=== PATIENT | male | born 1995 | race Hispanic/Latino ===

== ENCOUNTER 2022-04-24 09:37 | Emergency (ER) | payer MEDICAID ==
--- NOTE | 2022-04-24 10:27 | Event Note ---
ED Screening Note ED Screening Note: ATE EDIBLE HI PSYCHOSIS THREATENING BEHAVIOR IN TRIAGE LIMITED INFO This initial assessment/diagnostic orders/clinical plan/treatment(s) is/are subject to change based on patients health status, clinical progression and re- assessment by fellow clinical providers in the ED. Further treatment and workup at subsequent clinical providers discretion. Patient/guardian urged not to elope from the ED as their condition may be serious if not clinically assessed and managed. Initial orders include: 1013
[2022-04-24] MEDS ORDERED: HALOPERIDOL LACTATE 5 MG/1 ML INJ IM PRN (12:09)
[2022-04-24] MEDS ORDERED: LORazepam 2 MG/ML VIAL IM PRN (12:09)
--- NOTE | 2022-04-24 13:21 | Consultation ---
History of Present Illness - Reason for Consult Consult date: 04/24/22 Reason for consult: psychosis - History of Present Psychiatric Illness The patient was seen today. His thoughts are disorganized. He is responding to internal stimuli. He could not tell my why he came to the hospital. He initially says "I don't know." The nurse says the patient tried to choke himself and was placed in seclusion. The patient says he's hearing voices of the devil. He says they are telling him to hurt people and hurt himself. He says he is suicidal, but denies feeling homicidal. He says he has a history of schizophrenia and bipolar. The patient says he takes seroquel 600mg and propranolol 40mg. He denies any illicit drug use, alcohol or nicotine. PAST PSYCHIATRIC HISTORY: Diagnoses: Schizophrenia, bipolar Suicide attempts or Self-harm behavior: Denies Prior psychiatric hospitalizations: Yes Substance Abuse history: Denies Previous psychiatric medications tried: Denies Outpatient treatment: Denies PAST MEDICAL HISTORY: None reported Family Psychiatric History: None reported or documented SOCIAL HISTORY Marital Status: Single Living Arrangements: with family Employment Status: unemployed Access to guns/weapons: Denies Education: History of Abuse:Denies Legal History: Denies REVIEW OF SYSTEMS Constitutional: Negative for weight loss ENT: Negative for stridor Respiratory: Negative for cough or hemoptysis All other systems reviewed and are negative MENTAL STATUS EXAMINATION General Appearance and Behavior: Age appropriate, wearing appropriate clothes, cooperative, anxious, cooperative Cooperation: cooperative Psychomotor Behavior: Psychomotor normal Mood: depressed Affect and affective range: congruent with stated affect Thought Process: disorganized, responding to internal stimuli Thought Content: Hallucinations Speech: Normal volume, Regular rate and rhythm Suicidal Ideation: Yes Homicidal Ideation: Denies Hallucination: auditory Delusions: Denies Impulse Control: Poor Insight and Judgment: Poor Memory: Limited Attention: distracted Orientation: Alert and oriented Assessment Schizophrenia Treatment Plan 1013 Seroquel 300mg po BID Doxepin 25mg po qhs Medical: per primary Sitter: Defer to primary Disposition: Recommend acute psychiatric inpatient treatment Will follow. Thanks. Case staffed with Dr. Martin Medications and Allergies Allergies Allergy/AdvReac Type Severity Reaction Status Date / Time No Known Allergies Allergy Verified 04/24/22 09:45 Home Medications Medication Instructions Recorded Confirmed Last Taken Type Quetiapine Fumarate [SEROquel Xr] 600 mg PO BID 04/24/22 04/24/22 Unknown History Active Meds: Active Medications Haloperidol Lactate (Haloperidol Lactate 5 Mg/1 Ml Inj) 5 mg IM Q6HR PRN PRN Reason: Agitation Lorazepam (Lorazepam 2 Mg/Ml Vial) 2 mg IM Q4HR PRN PRN Reason: Agitation Mental Status Exam - Vital signs Last Vital Signs Temp 98 F 04/24/22 09:41 Pulse 99 H 04/24/22 09:41 Resp 20 04/24/22 09:41 BP 130/98 04/24/22 09:41 Pulse Ox 98 04/24/22 11:55 Results All other labs normal.
[2022-04-24] MEDS: QUEtiapine 100 MG TAB PO SCH (14:32)
--- NOTE | 2022-04-24 14:47 | Emergency Department Report ---
ED General Adult HPI - General Chief complaint: Psych Stated complaint: ANXIETY/THC CONSUPTION Time Seen by Provider: 04/24/22 10:24 Source: patient, EMS ( EMS documentation not available at time of chart dictation ), RN notes reviewed Mode of arrival: Ambulatory Limitations: Other (Patient is psychotic and disorganized) - History of Present Illness Initial comments: The patient was evaluated in the emergency department for symptoms described in the history of present illness. He/she was evaluated in the context of the global COVID-19 pandemic, which necessitated consideration that the patient might be at risk for infection with the virus that causes COVID-19. Institutional protocols and algorithms that pertain to the evaluation of patients at risk for COVID-19 are in a state of rapid change based on information released by regulatory bodies including the CDC and federal and state organizations. These policies and algorithms were followed during the patient's care in the emergency department. Please note that these policies, procedures and recommendations changed on a rapid basis. This is a 26-year-old gentleman. He presents to the department with a complaint of feeling psychotic after he took some marijuana. He denies additional coingestions. He is experiencing hallucinations. He denies head trauma. He denies cough and urinary symptoms. It is unknown what time he consumed the marijuana. It is unknown why he consumed the marijuana. His prehospital blood glucose is 117. 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 Patient reportedly tried to choke himself with a shirt prior to my personal evaluation -: unknown - Related Data Home Medications Medication Instructions Recorded Confirmed Last Taken Quetiapine Fumarate [SEROquel Xr] 600 mg PO BID 04/24/22 04/24/22 Unknown Allergies Allergy/AdvReac Type Severity Reaction Status Date / Time No Known Allergies Allergy Verified 04/24/22 09:45 ED Review of Systems ROS: Stated complaint: ANXIETY/THC CONSUPTION Other details as noted in HPI Constitutional: denies: fever Eyes: denies: eye discharge ENT: denies: epistaxis Cardiovascular: denies: chest pain Gastrointestinal: denies: abdominal pain Psychiatric: anxiety. denies: homicidal thoughts ED Past Medical Hx - Past Medical History Hx Psychiatric Treatment: Yes ([facility]) - Social History Smoking Status: Unknown if ever smoked - Medications Home Medications: Home Medications Medication Instructions Recorded Confirmed Last Taken Type Quetiapine Fumarate [SEROquel Xr] 600 mg PO BID 04/24/22 04/24/22 Unknown History ED Physical Exam - General Limitations: Other (Patient is disorganized and psychotic) General appearance: anxious - Head Head exam: Present: atraumatic, normocephalic - Eye Eye exam: Present: normal appearance, EOMI. Absent: nystagmus - ENT ENT exam: Present: normal exam, normal orophraynx, mucous membranes moist, normal external ear exam - Neck Neck exam: Present: normal inspection, full ROM. Absent: tenderness, meningismus - Respiratory Respiratory exam: Present: normal lung sounds bilaterally. Absent: respiratory distress, wheezes, rales, rhonchi, stridor, decreased breath sounds - Cardiovascular Cardiovascular Exam: Present: regular rate, normal rhythm, normal heart sounds. Absent: bradycardia, tachycardia, irregular rhythm, systolic murmur, diastolic murmur, rubs, gallop - GI/Abdominal GI/Abdominal exam: Present: soft. Absent: distended, tenderness, guarding, rebound, rigid, pulsatile mass - Rectal Rectal exam: Present: deferred - Extremities Exam Extremities exam: Present: full ROM, other (2+ pulses noted in the bilateral upper and lower extremities. There is no palpable cord. negative Homans sign. Muscular compartments are soft. The pelvis is stable.). Absent: normal inspection (There is a left lateral inferior knee abrasion), pedal edema, calf tenderness - Back Exam Back exam: Present: normal inspection. Absent: tenderness, CVA tenderness (R), CVA tenderness (L), paraspinal tenderness, vertebral tenderness - Neurological Exam Neurological exam: Present: alert, oriented X3, other (There is no facial droop. The tongue is midline. EOMI. 5 out of 5 strength in 4 extremities). Absent: motor sensory deficit - Psychiatric Psychiatric exam: Present: agitated, anxious - Skin Skin exam: Present: warm, normal color, abrasion ED Course Vital Signs 04/24/22 04/24/22 09:41 11:55 Temperature 98 F Pulse Rate 99 H Respiratory 20 Rate Blood Pressure 130/98 [Left] O2 Sat by Pulse 98 98 Oximetry - Reevaluation(s) Reevaluation #1: 04/24/22 14:46 Differential diagnosis, include but not limited to: Psychosis, marijuana intoxication, medical clearance for psychiatric placement Assessment and plan: 26-year-old gentleman presenting with acute psychosis and m arijuana ingestion. Place patient on 1013. Obtain psychiatric consultation. Obtain appropriate laboratory studies. Multiple phone calls have been made to the lab to request appropriate laboratory studies. I am currently waiting laboratory results at this time. Psychiatric consultation is pending. Nursing team reports that patient is cooperative at this time 04/24/22 16:16 Laboratory studies are essentially unremarkable. Awaiting urinalysis, drug screen and COVID swab. At this point in time, the patient does not appear to have an immediate medical contraindication to psychiatric admission, evaluation, consultation and placement. Emergency room will follow along as the patient provides UA, drug screen and COVID swab. These tests are not necessary to exclude emergent medical conditions ED Medical Decision Making - Lab Data Result diagrams: 04/24/22 14:54 04/24/22 14:54 Vital Signs 04/24/22 04/24/22 09:41 11:55 Temperature 98 F Pulse Rate 99 H Respiratory 20 Rate Blood Pressure 130/98 [Left] O2 Sat by Pulse 98 98 Oximetry Lab Results 04/24/22 04/24/22 04/24/22 Range/Units 14:54 14:54 14:54 WBC 7.8 (4.5-11.0) K/mm3 RBC 4.90 (3.65-5.03) M/mm3 Hgb 15.2 (11.8-15.2) gm/dl Hct 45.4 (35.5-45.6) % MCV 93 (84-94) fl MCH 31 (28-32) pg MCHC 34 (32-34) % RDW 13.4 (13.2-15.2) % Plt Count 228 (140-440) K/mm3 Lymph % (Auto) 18.2 (13.4-35.0) % [place] % (Auto) 8.5 H (0.0-7.3) % Eos % (Auto) 0.8 (0.0-4.3) % Baso % (Auto) 0.1 (0.0-1.8) % Lymph # (Auto) 1.4 (1.2-5.4) K/mm3 [place] # (Auto) 0.7 (0.0-0.8) K/mm3 Eos # (Auto) 0.1 (0.0-0.4) K/mm3 Baso # (Auto) 0.0 (0.0-0.1) K/mm3 Seg Neutrophils % 72.4 H (40.0-70.0) % Seg Neutrophils # 5.6 (1.8-7.7) K/mm3 Sodium 136 L (137-145) mmol/L Potassium 4.3 (3.6-5.0) mmol/L Chloride 96.6 L (98-107) mmol/L Carbon Dioxide 28 (22-30) mmol/L Anion Gap 16 mmol/L BUN 22 H (9-20) mg/dL Creatinine 0.9 (0.8-1.3) mg/dL Estimated GFR > 60 ml/min BUN/Creatinine Ratio 24 % Glucose 100 (75-100) mg/dL Calcium 9.9 (8.4-10.2) mg/dL Total Bilirubin 1.00 (0.1-1.2) mg/dL AST 34 (5-40) units/L ALT 34 (7-56) units/L Alkaline Phosphatase 95 (35-129) units/L Total Protein 7.9 (6.3-8.2) g/dL Albumin 5.2 H (3.9-5) g/dL Albumin/Globulin Ratio 1.9 % Salicylates < 0.3 L (2.8-20.0) mg/dL Acetaminophen (10.0-30.0) ug/mL Plasma/Serum Alcohol (0-0.07) % 04/24/22 04/24/22 Range/Units 14:54 14:54 WBC (4.5-11.0) K/mm3 RBC (3.65-5.03) M/mm3 Hgb (11.8-15.2) gm/dl Hct (35.5-45.6) % MCV (84-94) fl MCH (28-32) pg MCHC (32-34) % RDW (13.2-15.2) % Plt Count (140-440) K/mm3 Lymph % (Auto) (13.4-35.0) % [place] % (Auto) (0.0-7.3) % Eos % (Auto) (0.0-4.3) % Baso % (Auto) (0.0-1.8) % Lymph # (Auto) (1.2-5.4) K/mm3 [place] # (Auto) (0.0-0.8) K/mm3 Eos # (Auto) (0.0-0.4) K/mm3 Baso # (Auto) (0.0-0.1) K/mm3 Seg Neutrophils % (40.0-70.0) % Seg Neutrophils # (1.8-7.7) K/mm3 Sodium (137-145) mmol/L Potassium (3.6-5.0) mmol/L Chloride (98-107) mmol/L Carbon Dioxide (22-30) mmol/L Anion Gap mmol/L BUN (9-20) mg/dL Creatinine (0.8-1.3) mg/dL Estimated GFR ml/min BUN/Creatinine Ratio % Glucose (75-100) mg/dL Calcium (8.4-10.2) mg/dL Total Bilirubin (0.1-1.2) mg/dL AST (5-40) units/L ALT (7-56) units/L Alkaline Phosphatase (35-129) units/L Total Protein (6.3-8.2) g/dL Albumin (3.9-5) g/dL Albumin/Globulin Ratio % Salicylates (2.8-20.0) mg/dL Acetaminophen 5.0 L (10.0-30.0) ug/mL Plasma/Serum Alcohol < 0.01 (0-0.07) % Critical care attestation.: If time is entered above; I have spent that time in minutes in the direct care of this critically ill patient, excluding procedure time. ED Disposition Clinical Impression: Medical clearance for psychiatric admission, Marijuana use Disposition: [address] [place] [address] Is pt being admited?: No Does the pt Need Aspirin: No Condition: Good
[2022-04-24 15:59] LABS: Basophils % (Auto) 0.1 % (0.0-1.8); Eosinophils # (Auto) 0.1 K/mm3 (0.0-0.4); Eosinophils % (Auto) 0.8 % (0.0-4.3); Hematocrit 45.4 % (35.5-45.6); Hemoglobin 15.2 gm/dl (11.8-15.2); Lymphocytes # (Auto) 1.4 K/mm3 (1.2-5.4); Lymphocytes % (Auto) 18.2 % (13.4-35.0); Mean Corpuscular HGB Conc 34 % (32-34); Mean Corpuscular Volume 93 fl (84-94); Monocytes # (Auto) 0.7 K/mm3 (0.0-0.8); Monocytes % (Auto) 8.5 % (0.0-7.3); Platelet Count 228 K/mm3 (140-440); Red Cell Distribution Width 13.4 % (13.2-15.2)
[2022-04-24 16:07] LABS: Alanine Aminotransferase 34 units/L (7-56); Albumin 5.2 g/dL (3.9-5); BUN/Creatinine Ratio 24; Blood Urea Nitrogen 22 mg/dL (9-20); Calcium 9.9 mg/dL (8.4-10.2); Hemolysis Index 3
[2022-04-24 20:31] LABS: Amphetamine Screen,Urine Negative; Benzodiazepines Screen,Urine Negative; Cocaine Screen,Urine Negative; Methadone Screen,Urine Negative; Opiate Screen,Urine Negative
[2022-04-24 20:45] LABS: Cannabinoid Screen,Urine Positive
[2022-04-24 21:03] LABS: Mucus,Urine FEW /HPF
[2022-04-24 21:04] LABS: Bilirubin,Urine Negative (Negative); Blood,Urine Trace (Negative); Color,Urine Yellow (Yellow); Protein,Urine <15 mg/dL mg/dL (Negative)
[2022-04-24] MEDS ORDERED: DOXEPIN 25 MG CAP PO SCH (22:00)
[2022-04-25 09:16] VITALS: BP 110/76
[2022-04-25] MEDS: QUEtiapine 100 MG TAB PO SCH (09:58)
--- NOTE | 2022-04-25 09:58 | Progress Note ---
Subjective - Reason for Consult Consult date: 04/25/22 Reason for consult: psychosis - Chief Complaint Chief complaint: The patient was seen today. He is much more calm, today. He is cooperative and pleasant. He is a little confused. He did not know what the full date was. He is talking and laughing with the another patient. He does express feeling better. The patient says he smoked "weed that he believes was laced with cocaine." He denies SI/HI or hallucinations. He says "mentally, I feel good." The patient can be managed on an outpatient basis. Will give scripts and have him follow up with outpatient psychiatrist. REVIEW OF SYSTEMS Constitutional: Negative for weight loss ENT: Negative for stridor Respiratory: Negative for cough or hemoptysis All other systems reviewed and are negative MENTAL STATUS EXAMINATION General Appearance and Behavior: Age appropriate, wearing appropriate clothes, cooperative, calm, pleasant Cooperation: cooperative Psychomotor Behavior: Psychomotor normal Mood: better, good Affect and affective range: congruent with stated affect Thought Process: goal directed Thought Content: None Speech: Normal volume, Regular rate and rhythm Suicidal Ideation: Denies Homicidal Ideation: Denies Hallucination: Denies Delusions: None elicited Impulse Control: Limited Insight and Judgment: Limited Memory: Limited Attention: attentive Orientation: Alert and oriented Assessment Schizophrenia Treatment Plan d/c 1013 Seroquel 300mg po BID Doxepin 25mg po qhs Medical: per primary Sitter: Defer to primary Disposition: Do not recommend acute psychiatric inpatient treatment. The patient understands that if SI/HI or any fear of endangerment arise he is to seek immediate assistance. The corporate controller to further discuss safety plan and document, also give the patient all necessary resources. The patient to abstain from all illicit drug use. He is to follow up with outpatient psych in 7 to 14 days upon discharge Will sign off. Thanks. Case staffed with Dr. Martin Mental Status Exam - Vital signs Last Vital Signs Temp 98.7 F 04/25/22 09:16 Pulse 91 H 04/25/22 09:16 Resp 18 04/25/22 09:16 BP 110/76 04/25/22 09:16 Pulse Ox 100 04/25/22 09:16
--- NOTE | 2022-04-25 11:39 | Event Note ---
Date: 04/25/22 Patient reevaluated this morning and deemed stable for discharge. 1013 discontinued. Patient discharged.
== END 2022-04-25 12:20 | disposition home or self-care (01) ==
LOC: EEVIPCON 09:37 → ED 09:37
DX: Z13.30 Encounter for screening examination for mental health and behavioral disorders, unspecified (principal); F19.90 Other psychoactive substance use, unspecified, uncomplicated; F31.9 Bipolar disorder, unspecified; F20.9 Schizophrenia, unspecified; Z20.822 Contact with and (suspected) exposure to COVID-19
CPT/HCPCS: 36415; 80053; 80307; 81001; 84443; 85025; 99284; U0003; 80320; G0480